=== PATIENT | female | born 1985 | race Hispanic/Latino ===

== ENCOUNTER 2017-03-21 06:44 | Emergency (ER) | payer BC ==
[2017-03-21 07:07] VITALS: BP 106/68; PULSE 64; RESP 18; TEMP 97.9; O2SAT 100
[2017-03-21] MEDS ORDERED: DiphenhydrAMINE 50 mg/ml Inj IVP STA (08:12)
[2017-03-21] MEDS ORDERED: Sodium Chloride 0.9% 1,000 ML IV STA (08:12)
--- NOTE | 2017-03-21 08:52 | ED PDOC ---
Arrival/HPI - General Chief Complaint: Headache Time Seen by Provider: 03/21/17 08:05 Historian: Patient - History of Present Illness Narrative History of Present Illness (Text): 03/21/17 08:48 A 32 year old female, whose past medical history includes migraine headaches on Topamax (25mg twice a day), presents to the emergency department complaining of a migraine headache that began this morning, waking her from her sleep. The patient states that her symptoms feel similar to migraine headaches she has experienced in the past. The patient describes the pain as pressure-like and pulsating. She notes that she has been feeling dizzy, nauseous, and experiencing loose stools. The patient denies fevers, chills, chest pain, shortness of breath, dyspnea on exertion, cough, abdominal pain, back pain, urinary/bowel changes, or any other complaint. PMD: Dr. Mejia Time/Duration: 4-6 hours Symptom Onset: Sudden Symptom Course: Unchanged Activities at Onset: Rest, Light Context: Home Past Medical History - Provider Review Nursing Documentation Reviewed: Yes - Cardiac Hx Cardiac Disorders: No - Pulmonary Hx Respiratory Disorders: No - Neurological Hx Neurological Disorder: No - HEENT Hx HEENT Disorder: No - Renal Hx Renal Disorder: No - Endocrine/Metabolic Hx Endocrine Disorders: No - Hematological/Oncological Hx Blood Disorders: No - Integumentary Hx Dermatological Disorder: No - Musculoskeletal/Rheumatological Hx Musculoskeletal Disorders: No - Gastrointestinal Hx Gastrointestinal Disorders: No - Genitourinary/Gynecological Hx Genitourinary Disorders: No - Psychiatric Hx Psychophysiologic Disorder: No Hx Substance Use: No - Surgical History Other/Comment: deviated septum Family/Social History - Physician Review Nursing Documentation Reviewed: Yes Family/Social History: No Known Family HX Smoking Status: Former Smoker Hx Alcohol Use: No Hx Substance Use: No Allergies/Home Meds Allergies/Adverse Reactions: Allergies No Known Allergies Allergy (Verified 03/21/17 06:58) Home Medications: Home Meds Medication Instructions Recorded Confirmed Topiramate [Topamax] 25 mg PO BID 03/21/17 03/21/17 Review of Systems - Physician Review All systems were reviewed & negative as marked: Yes - Review of Systems Constitutional: absent: Fevers, Night Sweats Respiratory: absent: SOB, Cough Cardiovascular: absent: Chest Pain, BENJAMIN Gastrointestinal: Stool Changes (Loose Stools), Nausea, Vomiting Genitourinary Female: absent: Urine Output Changes Musculoskeletal: absent: Back Pain, Neck Pain Neurological: Headache, Dizziness Physical Exam Vital Signs Reviewed: Yes Vital Signs Temp Pulse Resp BP Pulse Ox 03/21/17 06:58 97.9 F 64 18 106/68 100 03/21/17 06:44 98.7 F 72 16 115/72 100 Temperature: Afebrile Blood Pressure: Normal Pulse: Regular Respiratory Rate: Normal Appearance: Positive for: Well-Appearing, Non-Toxic, Comfortable Pain Distress: None Mental Status: Positive for: Alert and Oriented X 3 - Systems Exam Head: Present: Atraumatic, Normocephalic, Tenderness (Temporal Artery Tenderness. ) Pupils: Present: PERRL Extroacular Muscles: Present: EOMI Conjunctiva: Present: Normal Mouth: Present: Moist Mucous Membranes Nose (Internal): Present: Normal Inspection Neck: Present: Normal Range of Motion Respiratory/Chest: Present: Clear to Auscultation, Good Air Exchange. No: Respiratory Distress, Accessory Muscle Use Cardiovascular: Present: Regular Rate and Rhythm, Normal S1, S2. No: Murmurs Abdomen: Present: Normal Bowel Sounds. No: Tenderness, Distention, Peritoneal Signs Back: Present: Normal Inspection Upper Extremity: Present: Normal Inspection. No: Cyanosis, Edema Lower Extremity: Present: Normal Inspection. No: Edema Neurological: Present: GCS=15, CN II-XII Intact, Speech Normal, Motor Func Grossly Intact, Normal Sensory Function, Normal Cerebellar Funct, Gait Normal, Memory Normal, Normal 2Pt Descrimination Skin: Present: Warm, Dry, Normal Color. No: Rashes Psychiatric: Present: Alert, Oriented x 3, Normal Insight, Normal Concentration Medical Decision Making ED Course and Treatment: 03/21/17 08:53 Impression: A 32 year old female presents to the emergency department complaining of a migraine headache that began this morning. Plan: -- Tylenol, Toradol, and Reglan -- Reassess and disposition Progress Notes: 03/21/17 09:05: Patient states that she feels better. States that her headache is almost completely gone. The patient states that she wants to be discharged and is requesting a work note. The patient was offered a longer duration of observation, but states she wants to go home. - Medication Orders Current Medication Orders: Discontinued Medications Acetaminophen (Tylenol 325mg Tab) 975 mg PO STAT STA Stop: 03/21/17 08:16 Last Admin: 03/21/17 08:29 Dose: 975 mg MAR Pain/Vitals Document 03/21/17 08:29 SRE (Rec: 03/21/17 08:30 SRE [id number]) Pain Reassessment Is This A Pain ReAssessment? Yes Sleep Is patient sleeping during reassessment? No Presence of Pain Presence of Pain Yes Pain Scale Used Pain Scale Used Numeric Location Pain Location Body Nanny/Household Manager Ketorolac Tromethamine (Toradol) 60 mg IM STAT STA Stop: 03/21/17 08:16 Last Admin: 03/21/17 08:25 Dose: 60 mg MAR Pain Assessment Document 03/21/17 08:25 SRE (Rec: 03/21/17 08:26 SRE [id number]) Pain Reassessment Is this a pain reassessment? Yes Sleep Is patient sleeping during reassessment? No Presence of Pain Presence of Pain Yes Pain Scale Used Pain Scale Used Numeric Location Pain Location Body Nanny/Household Manager Description Description Intermittent IM Administration Charges Document 03/21/17 08:25 SRE (Rec: 03/21/17 08:26 SRE [id number]) Charges for Administration # of IM Administrations 1 Metoclopramide HCl (Reglan) 10 mg PO STAT STA Stop: 03/21/17 08:16 Last Admin: 03/21/17 08:30 Dose: 10 mg - Scribe Statement The provider has reviewed the documentation as recorded by the Edgardo Weller Provider Scribe Attestation: All medical record entries made by the Edgardo were at my direction and personally dictated by me. I have reviewed the chart and agree that the record accurately reflects my personal performance of the history, physical exam, medical decision making, and the department course for this patient. I have also personally directed, reviewed, and agree with the discharge instructions and disposition. Disposition/Present on Arrival - Present on Arrival Any Indicators Present on Arrival: No History of DVT/PE: No History of Uncontrolled Diabetes: No Urinary Catheter: No History of Decub. Ulcer: No History Surgical Site Infection Following: None - Disposition Have Diagnosis and Disposition been Completed?: Yes Diagnosis: Migraine Disposition: HOME/ ROUTINE Disposition Time: 09:12 Condition: IMPROVED Discharge Instructions (ExitCare): Migraine Headache (ED) Additional Instructions: Mr Shipley, thank you for letting us take care of you today. Your provider was Dr. Vickers. You were treated for Migraine. The emergency medical care you received today was directed at your acute symptoms. If you were prescribed any medication, please fill it and take as directed. It may take several days for your symptoms to resolve. Return to the Emergency Department if your symptoms worsen, do not improve, or if you have any other problems. Please contact your doctor or call one of the physicians/clinics you have been referred to that are listed on the Patient Visit Information form that is included in your discharge packet. Bring any paperwork you were given at discharge with you along with any medications you are taking to your follow up visit. Our treatment cannot replace ongoing medical care by a primary care provider (PCP) outside of the emergency department. Thank you for allowing the [facility] team to be part of your care today. If you had an X-Ray or CT scan: A Radiologist will review the ED reading if any change in treatment is needed we will contact you. If you had a blood, urine, or wound culture: It will take several days for the results, if any change in treatment is needed we will contact you. If you had an STI test: It will take 48 hours for the results. Please call after 1 week if you have not heard back. Referrals: PCP,NO [Primary Care Provider] - Follow up with primary Forms: [employer] [facility] ([place]), WORK NOTE
== END 2017-03-21 09:12 | disposition home or self-care (01) ==
LOC: ED 06:44
DX: G43.909 Migraine, unspecified, not intractable, without status migrainosus (principal)
CPT/HCPCS: 96372; 99285; J1885